=== PATIENT | female | born 1925 | race Caucasian/White ===

== ENCOUNTER 2017-03-05 14:57 | Day surgery (SDC) | payer MEDICARE, BC ==
[~2017-03-05] VITALS: Ht 162.6 cm; Wt 68.5 kg
[~2017-03-05 14:57] MED LIST: ACIPHEX20 MG PO; ANTIVERT 12.512.5 MG PO; CALCIUM 500500 M1 PO; COLACE 100100 MG/CAP PO; CRANBERRY FRUI425 MG PO; DEXILANT60 MG PO; DITROPAN 5MG TAB5 MG PO; L-LYSINE1000 MG PO; LUTEIN PO; TOFRANIL 25MG T25 MG PO; VITAMIN C500 MG PO; ZIAC 5/6.25MG T1 TAB PO; ZOCOR 20MG20 MG PO
[2017-03-05] MEDS ORDERED: ACIPHEX20 MG PO (15:54)
[2017-03-05] MEDS ORDERED: MICROZIDE12.5 MG PO (15:56)
[2017-03-05 16:04] VITALS: BP 163/112; PULSE 78; TEMP 98.2
[2017-03-05 16:30] VITALS: BP 156/80; PULSE 85; TEMP 98.2
[2017-03-05 16:45] VITALS: BP 144/81; PULSE 74
[2017-03-05 17:00] VITALS: BP 156/82; PULSE 77
[2017-03-05 17:15] VITALS: BP 152/94; PULSE 78
== END 2017-03-05 17:45 | disposition home or self-care (01) ==
LOC: SDCO 14:57
DX: K22.2 Esophageal obstruction (principal); K22.4 Dyskinesia of esophagus; K21.9 Gastro-esophageal reflux disease without esophagitis; I10 Essential (primary) hypertension; E78.00 Pure hypercholesterolemia, unspecified; Z85.3 Personal history of malignant neoplasm of breast; Z87.19 Personal history of other diseases of the digestive system
CPT/HCPCS: C1726; J2250; J3010; J7030